=== PATIENT | male | born 1945 | race Caucasian/White ===

== ENCOUNTER 2016-11-17 13:06 | Emergency (ER) | payer MEDICARE, OTHER ==
[2016-11-17 15:57] LABS: BASOPHIL 0.5 % (0-2); HCT 43.4 % (42.0-52.0); HGB 15.7 g/dl (13.2-18.0); LYMPHOCYTE 27.8 % (15-48); MCHC 36.2 g/dL (32.0-36.0); MCV 96.7 fL (78.0-100.0); MONOCYTE 10.3 % (0-12); MPV 9.2 fL (6.0-9.5); NEUTROPHIL 58.4 % (41-80); PLT 192 K/uL (150-400); RBC 4.49 M/uL (4.70-6.00); RDW 13.2 % (11.5-14.0); WBC 5.8 K/uL (4.0-10.5)
[2016-11-17 15:59] LABS: BILIRUBIN NEGATIVE (NEGATIVE); BLOOD NEGATIVE Ery/uL (NEGATIVE); CLARITY CLEAR (CLEAR); COLOR YELLOW (YELLOW); GLUCOSE (U) NORMAL (NORMAL); KETONE (U) NEGATIVE (NEGATIVE); LEUKOCYTES NEGATIVE Leu/uL (NEGATIVE); NITRITE NEGATIVE (NEGATIVE); PROTEIN NEGATIVE (NEGATIVE); SPECIFIC GRAVITY 1.025 (1.001-1.030); UROBILINOGEN 0.2 mg/dL (0.2-1.0); pH 5.5 (5.0-9.0)
[2016-11-17 16:27] LABS: ALBUMIN 4.7 g/dL (3.4-4.8); BILIRUBIN - TOTAL 0.5 mg/dL (0.1-1.0); CREATININE 0.7 mg/dL (0.7-1.2); POTASSIUM 4.1 mmol/L (3.5-5.1); TOTAL PROTEIN 7.7 g/dL (6.4-8.3)
[2016-11-17 16:28] LABS: LACTIC ACID 1.2 mmol/L (0.5-2.2)
== END 2016-11-17 18:13 | disposition home or self-care (01) ==
LOC: FER 13:06
PROVIDERS: Emergency Medicine
DX: I10 Essential (primary) hypertension (principal); G89.29 Other chronic pain; Z79.891 Long term (current) use of opiate analgesic; Z79.899 Other long term (current) drug therapy
CPT/HCPCS: 36415; 80053; 81003; 82150; 83605; 85025; 99283